=== PATIENT | female | born 1960 | race Caucasian/White ===

== ENCOUNTER 2020-09-29 11:50 | Outpatient (REF) | payer OTHER, SELFPAY ==
--- NOTE | ~2020-09-29 | MM_ITS ---
EXAMINATION: MM SCREENING DIGITAL BREAST TOMOSYNTHESIS, BILATERAL CLINICAL INFORMATION: Screening. Asymptomatic. The lifetime risk of breast cancer based on the Tyrer-Cuzick Model is 23%. COMPARISON: Mammography: 04/30/2018, 04/16/2017, 02/21/2016 TECHNIQUE: Digital breast tomosynthesis is performed in both the craniocaudal and mediolateral oblique views along with computer-aided detection (CAD). Synthesized 2D images are generated from the tomosynthesis. FINDINGS: There are scattered areas of fibroglandular density (ACR BI-RADS breast composition Category b). There are no significant masses, abnormal calcifications, or other abnormalities. The axilla and skin contours are unremarkable. There are no significant changes. MM/MM tomosynthesis screening BI IMPRESSION: No mammographic evidence of malignancy. ASSESSMENT: BI-RADS 1: Negative RECOMMENDATION: 1. Routine annual mammography screening. 2. The lifetime risk of breast cancer based on the Tyrer-Cuzick Model is 23%. Additional annual adjunct screening with breast MRI may be of benefit in women with a risk score of 20% or greater. This patient's information was entered into a reminder system with a target due date for their next mammogram.
== END 2020-09-29 11:51 | disposition home or self-care (01) ==
LOC: HO.MAMMO 11:50
PROVIDERS: PCP Internal Medicine; Visit Provider Internal Medicine
DX: Z12.31 Encounter for screening mammogram for malignant neoplasm of breast (principal)
CPT/HCPCS: 77063; 77067

== ENCOUNTER 2021-10-24 09:49 | Outpatient (REF) | payer OTHER, SELFPAY ==
--- NOTE | ~2021-10-24 | MM_ITS ---
EXAMINATION: MM SCREENING DIGITAL BREAST TOMOSYNTHESIS, BILATERAL CLINICAL INFORMATION: Screening. Asymptomatic. The lifetime risk of breast cancer based on the Tyrer-Cuzick Model is 18%. COMPARISON: Mammography: September 29, 2020 and studies dating back to April 18, 2011 TECHNIQUE: Digital breast tomosynthesis is performed in both the craniocaudal and mediolateral oblique views along with computer-aided detection (CAD). Synthesized 2D images are generated from the tomosynthesis. FINDINGS: There are scattered areas of fibroglandular density (ACR BI-RADS breast composition Category b). There are no significant masses, abnormal calcifications, or other abnormalities. MM/MM tomosynthesis screening BI IMPRESSION: No significant changes from prior exam. ASSESSMENT: BI-RADS 1: Negative RECOMMENDATION: Routine annual mammography screening. This patient's information was entered into a reminder system with a target due date for their next mammogram.
== END 2021-10-24 09:50 | disposition home or self-care (01) ==
LOC: HO.MAMMO 09:49
PROVIDERS: Visit Provider Internal Medicine
DX: Z12.31 Encounter for screening mammogram for malignant neoplasm of breast (principal)
CPT/HCPCS: 77063; 77067

== ENCOUNTER 2023-08-13 10:59 | Outpatient (REF) | payer OTHER, SELFPAY | END 2023-08-13 11:00 | disposition home or self-care (01) | LOC: HO.MAMMO 10:59 | PROVIDERS: PCP Internal Medicine; Visit Provider Internal Medicine | DX: Z12.31 Encounter for screening mammogram for malignant neoplasm of breast (principal) | CPT/HCPCS: 77063; 77067 ==

== ENCOUNTER → 2023-08-13 11:30 | Outpatient (BNV) | payer OTHER, SELFPAY | PROVIDERS: PCP Internal Medicine; Visit Provider Radiology Diagnostic Radiology | DX: Z12.31 Encounter for screening mammogram for malignant neoplasm of breast (principal) | CPT/HCPCS: 77063; 77067 ==

== ENCOUNTER 2024-08-18 10:41 | Outpatient (REF) | payer BC, SELFPAY ==
--- NOTE | ~2024-08-18 | MM_ITS ---
EXAMINATION: MM SCREENING DIGITAL BREAST TOMOSYNTHESIS, BILATERAL CLINICAL INFORMATION: Screening. Asymptomatic. COMPARISON: Mammography: Comparison is made with available priors TECHNIQUE: Digital breast mammography with tomosynthesis is performed in both the craniocaudal and mediolateral oblique views along with computer-aided detection (CAD). FINDINGS: There are scattered areas of fibroglandular density (ACR BI-RADS breast composition Category b). There are no significant masses, abnormal calcifications, or other abnormalities. MM/MM tomosynthesis screening BI IMPRESSION: No mammographic evidence of malignancy. ASSESSMENT: BI-RADS BI-RADS 1 - Negative RECOMMENDATION: Routine annual mammography screening. 1 year F/U This examination should not preclude the clinical evaluation of a suspicious palpable abnormality. This patient's information was entered into a reminder system with a target due date for their next mammogram. Electronically signed by: Arlet Gonsales DO 08/21/2024 05:34 PM EDT
--- OUTSIDE RECORDS SUMMARY | 2024-08-18 11:58 | XMS_ITS | Clinical Summary ---
Author Organization [employer] [facility] lin Address [address] [facility] [place] [address] Care Team Providers Care Training Program Manager Name Role Phone Pcp, No Primary Care Provider [phone] Allergies Active Allergy Reactions Criticality Noted Date Comments Cefprozil Rash Low 06/04/2022 Penicillin Rash Low 06/04/2022 confirmed via testing Medications levothyroxine (SYNTHROID) 125 MCG tablet Take 1 tablet (125 mcg total) by mouth 11/20/2021 Active levothyroxine (SYNTHROID) 125 MCG tablet 04/18/2022 Active lorazepam (ATIVAN) 1 MG tablet 06/01/2022 Active lorazepam (ATIVAN) 1 MG tablet See Instructions, 1 1/2 tabs to two tabs qhs max dose 2 pills, # 60 tablet, 5 Refills, Maintenance, 11/28/21 10:49:00 EDT, Tablet, [facility] # [facility], 176, cm, 11/16/21 16:39:00 EDT, Height, 95, kg, 04/21/20 0:16:00 EST, Dry Weight 11/28/2021 Active Social History Tobacco Use Types Packs/Day Years Used Date Smoking Tobacco: Never Smokeless Tobacco: Never Tobacco Cessation:Counseling Given: Not Answered Comments Unknown Sex and Gender Information Value Date Recorded Sex Assigned at Not on file Legal Sex Female 10:54 AM EDT Gender Identity Not on file Sexual Orientation Not on file Last Filed Vital Signs Vital Sign Reading Time Taken Comments Blood Pressure 126/76 06/04/2022 2:58 PM EDT Pulse 78 06/04/2022 2:58 PM EDT Temperature 36.7 C (98.1 F) 06/04/2022 2:58 PM EDT Respiratory Rate 18 06/04/2022 2:58 PM EDT Oxygen Saturation 98% 06/04/2022 2:58 PM EDT Inhaled Oxygen Concentration - - Weight - - Height - - Body Mass Index - - Plan of Treatment Health Maintenance Due Date Last Done Comments Colorectal Cancer: [facility] PY Screening every 10 yrs (or Modifier) 1962 Depression: Screening Annual ly using PHQ-2/9 in Adults 18 yrs or above (or HM Modifier)([facility]) 1980 Hepatitis C Virus Infection in Adolescents and Adults: Screening (or Modifier) ([facility]) 1980 [facility] Screening Reminder: Amada valles for all adults ([facility]) 1980 Tobacco Smoking Cessation: i n Adults excluding Women: Behavioral and Pharmacotherapy Interventions ([facility]) 1980 DTaP/Tdap/Td Vaccines ([facility]) (1 - Tdap) 1981 Cervical Cancer Screenin 1-65 yrs of age (or Modifier) 06/12/1983 Cervical Cancer Screening: P ap every 3 yrs pts age 21-65 06/12/1983 Cervical Cancer: Pap Screeni ng with Modifier timing ([facility]) 06/12/1983 Cervical Cancer: hrHPV alone or with cotesting Pap for Pts 30-65yrs screening every 5yrs ([facility]) 06/12/1983 Colorectal Cancer Screening 45 -75 Yrs (or HM Modifier) 06/12/2007 Colorectal Cancer: FLEXIBLE SIGMOIDOSCOPY Screening every 5 yrs 06/12/2007 Colorectal Cancer: Fecal Immunochemical Test (FIT) [facility]ually [facility] 06/12/2007 Colorectal Cancer: High-sens itivity gFOBT Screening Annually [facility] 06/12/2007 Colorectal Cancer: Stool Col oguard Screening every 3 yrs 06/12/2007 Colorectal Cancer:CT Colonog gabriella Screening every 5 yrs 06/12/2007 Breast Cancer: Screening Amada reena age 50-74 yrs (or HM Modifier)([facility]) 2012 Zoster/Shingles Vaccine Seri es Screening: Adults aged 18+ yrs (or HM Modifiers)([facility]) (2 of 2) 01/27/2019 12/02/2018 Pneumococcal Vaccination Scr eening: Patients 50+ yrs of age ([facility]) (2 of 2 - PCV) 11/26/2021 11/26/2020, 11/28/2007 COVID-19 Vaccine Screening: Initial Series and Booster Status ([facility]) (2023- season) 2023 11/08/2020, 05/11/2020, 04/19/2020 Flu Vaccination: Yearly for ages 18mos through 64 years (or Modifier)([facility]) 09/25/2024 RSV Vaccines (1 - 1-dose 75+ series) 2037 Pneumococcal Vaccination Scr eening: Pts 0-19 & 19-49 yrs of age ([facility] ) Discontinued 11/26/2020, 11/28/2007 Medical Devices Not on file Insurance [facility] Care Teams Training Program Manager Relationship Specialty Start Date End Date Pcp, No PCP - General Family Medicine 06/05/20
== END 2024-08-18 10:42 | disposition home or self-care (01) ==
LOC: HO.MAMMO 10:41
PROVIDERS: PCP Internal Medicine; Visit Provider Internal Medicine
DX: Z12.31 Encounter for screening mammogram for malignant neoplasm of breast (principal)
CPT/HCPCS: 77063; 77067

== ENCOUNTER → 2024-08-18 11:15 | Outpatient (BNV) | payer BC, SELFPAY | PROVIDERS: PCP Internal Medicine; Visit Provider Internal Medicine | DX: Z12.31 Encounter for screening mammogram for malignant neoplasm of breast (principal) | CPT/HCPCS: 77063; 77067 ==